=== PATIENT | female | born 1975 | race Caucasian/White ===

== ENCOUNTER 2017-08-31 16:06 | Observation (INO) | payer OTHER ==
--- NOTE | 2017-08-31 16:38 | PDOC ---
History of Present Illness <Estefanía Mccannan - Last Filed: 08/31/17 19:04> - General History Source: Patient - History of Present Illness Initial Comments: 08/31/17 17:50 42yo F with PMH of seizures, schizophrenia, and umbilical hernia presenting to the emergency department because of palpitations. She reports that the palpitations stopped when she came to the hospital because she "felt safe." Patient denies chest pain, shortness of breath, fever, or chills. Of note, history-taking has been difficult because of tangential speech and her story has changed frequently. Patient currently denies suicidal ideation or homicidal ideation. (Patient initially reported suicidal ideation to nurse, but later told resident that she only said so to the nurse because she did not trust her. ) Patient was recently incarcerated and has been homeless since release at the end of June. Psychiatric history includes multiple hospitalizations. <Cassy Mcclure - Last Filed: 08/31/17 19:45> - General Stated Complaint: DIFF. BREATHING Time Seen by Provider: 08/31/17 16:22 Past History <Boni Mccann - Last Filed: 08/31/17 19:04> - Past Medical History Anemia: No Asthma: Yes Cancer: No Cardiac Disorders: No CVA: No COPD: Yes CHF: No Dementia: No Diabetes: Yes (since 2014) GI Disorders: Yes Disorders: No HTN: Yes Hypercholesterolemia: No Kidney Stones: Yes (2014) Liver Disease: No Psychiatric Problems: Yes (BIPOLAR/SCHIZOPHRENIA) Seizures: Yes (last 10/2015) Thyroid Disease: Yes (HYPER) - Surgical History Abdominal Surgery: No Appendectomy: No Cardiac Surgery: No Cholecystectomy: No Lung Surgery: No Neurologic Surgery: Yes (2003 BRAIN TUMOR REMOVED) Orthopedic Surgery: No - Reproductive History PID: No - Suicide/Smoking/Psychosocial Hx Smoking History: Current every day smoker Have you smoked in the past 12 months: Yes Number of Cigarettes Smoked Daily: 20 Cigars Per Day: 0 'Breaking Loose' booklet given: 01/08/16 Hx Alcohol Use: Yes Drug/Substance Use Hx: Yes (PCP since age of 21 daily use, K2 daily use) Substance Use Type: Marijuana (daily use) Hx Substance Use Treatment: Yes (, [facility]) <Cassy Mcclure - Last Filed: 08/31/17 19:45> - Past Medical History Allergies/Adverse Reactions: Allergies Allergy/AdvReac Type Severity Reaction Status Date / Time lithium Allergy Verified 08/31/17 16:37 haloperidol [From Haldol] AdvReac Verified 08/31/17 16:37 haloperidol lactate AdvReac Verified 08/31/17 16:37 [From Haldol] Home Medications: Ambulatory Orders Divalproex Sodium [Depakote ER] 1,500 mg PO HS 01/08/16 Divalproex Sodium [Depakote ER] 500 mg PO DAILY 01/08/16 Paroxetine HCl 20 mg PO DAILY 01/08/16 Quetiapine Fumarate [Seroquel -] 200 mg PO HS 01/08/16 Risperidone [Risperdal] 2 mg PO BID 01/08/16 Venlafaxine HCl [Effexor -] 75 mg PO DAILY 01/08/16 Divalproex [Depakote -] 1,500 mg PO HS #90 tablet.ec 02/04/16 Divalproex [Depakote -] 500 mg PO AM #30 tablet.ec 02/04/16 Docusate Sodium [Colace -] 100 mg PO BID #60 capsule 02/04/16 Fluoxetine HCl [Prozac -] 10 mg PO DAILY #30 capsule 02/04/16 Ranitidine [Zantac -] 150 mg PO BID #60 tablet 02/04/16 Risperidone [Risperdal -] 2 mg PO BID #60 tablet 02/04/16 traZODone HCL [Desyrel -] 50 mg PO HS #30 tablet 02/04/16 Cephalexin [Keflex] 500 mg PO BID #14 capsule 08/31/17 Review of Systems - Review of Systems Constitutional: No: Chills, Fever Respiratory: No: Cough, Shortness of Breath Cardiac (ROS): Yes: Palpitations. No: Chest Pain ABD/GI: No: Diarrhea, Vomiting Psychiatric: Yes: Stressors, Emotional Problems <Cassy Mcclure - Last Filed: 08/31/17 19:45> *Physical Exam - Vital Signs Last Vital Signs Temp Pulse Resp BP Pulse Ox 99.2 F 114 H 24 111/70 96 08/31/17 16:31 08/31/17 16:31 08/31/17 16:31 08/31/17 16:31 08/31/17 16:31 <Ou,Boni - Last Filed: 08/31/17 19:04> - Vital Signs Vital Signs Temp Pulse Resp BP Pulse Ox 99.2 F 114 H 24 111/70 96 08/31/17 16:31 08/31/17 16:31 08/31/17 16:31 08/31/17 16:31 08/31/17 16:31 08/31/17 18:44 Psychiatric: Alert and Oriented x 4, Abnormal affect, tangential speech, Thought process nonlinear - Physical Exam General Appearance: Yes: Disheveled, Obese HEENT: positive: EOMI, FOZIA Neck: positive: Trachea midline, Supple Respiratory/Chest: positive: Normal Breath Sounds Cardiovascular: positive: Regular Rhythm, Regular Rate, S1, S2 Vascular Pulses: Dorsalis-Pedis (R): 2+, Doralis-Pedis (L): 2+ Gastrointestinal/Abdominal: positive: Normal Bowel Sounds, Tender ( periumbilical hernia), Soft Neurologic: positive: superintendent communications II-XII NML intact, Fully Oriented, Alert <Cassy Mcclure - Last Filed: 08/31/17 19:45> ED Treatment Course - LABORATORY CBC & Chemistry Diagram: 08/31/17 18:00 08/31/17 18:00 - ADDITIONAL ORDERS Additional order review: Laboratory Results 08/31/17 08/31/17 08/31/17 18:40 18:00 18:00 Sodium Potassium Chloride Carbon Dioxide Anion Gap BUN Creatinine Creat Clearance w eGFR Random Glucose Calcium Total Bilirubin AST ALT Alkaline Phosphatase Creatine Kinase 456 H Troponin I < 0.02 Total Protein Albumin TSH 0.94 Urine Color Ltyellow Urine Appearance Clear Urine pH 6.0 Ur Specific [place] 1.006 Urine Protein Negative Urine Glucose (UA) Negative Urine Ketones Trace H Urine Blood Negative Urine Nitrite Negative Urine Bilirubin Negative Urine Urobilinogen Negative Ur Leukocyte Esterase Trace Urine WBC (Auto) 10 Urine RBC (Auto) 1 Ur Epithelial Cells Rare Urine HCG, Qual Negative 08/31/17 18:00 Sodium 141 Potassium 3.9 Chloride 106 Carbon Dioxide 23 Anion Gap 12 BUN 9 Creatinine 0.8 Creat Clearance w eGFR > 60 Random Glucose 90 Calcium 8.9 Total Bilirubin 0.4 AST 25 ALT 31 Alkaline Phosphatase 69 Creatine Kinase Troponin I Total Protein 7.2 Albumin 3.4 TSH Urine Color Urine Appearance Urine pH Ur Specific [place] Urine Protein Urine Glucose (UA) Urine Ketones Urine Blood Urine Nitrite Urine Bilirubin Urine Urobilinogen Ur Leukocyte Esterase Urine WBC (Auto) Urine RBC (Auto) Ur Epithelial Cells Urine HCG, Qual 08/31/17 18:00 RBC 4.34 MCV 88.8 MCHC 33.7 RDW 14.2 D MPV 8.9 Neutrophils % 60.8 Lymphocytes % 31.7 Monocytes % 5.5 Eosinophils % 0.8 Basophils % 1.2 - RADIOLOGY Radiology Studies Ordered: Category Date Time Status CHEST PA & LAT [RAD] Stat Radiology 08/31/17 17:36 Ordered - Medications Given in the ED: ED Medications Discontinued Medications Generic Name Dose Route Start Last Admin Trade Name Freq PRN Reason Stop Dose Admin Sodium Chloride 1,000 mls @ 1,000 mls/hr 08/31/17 17:39 08/31/17 18:00 Normal Saline - IV 08/31/17 18:38 1,000 mls/hr ASDIR STA Administration <Boni Mccann - Last Filed: 08/31/17 19:04> - LABORATORY CBC & Chemistry Diagram: 08/31/17 18:00 08/31/17 18:00 <Cassy Mcclure - Last Filed: 08/31/17 19:45> Medical Decision Making - Medical Decision Making Workup for palpitations and tachycardia. Patient with extensive psychiatric history. Currently denying suicidal ideation. EKG normal 08/31/17 17:57 Laboratory Tests 08/31/17 08/31/17 08/31/17 18:00 18:00 18:00 WBC 8.5 RBC 4.34 Hgb 13.0 Hct 38.5 MCV 88.8 MCH 29.9 MCHC 33.7 RDW 14.2 D Plt Count 346 D MPV 8.9 Absolute Neuts (auto) 5.2 Neutrophils % 60.8 Lymphocytes % 31.7 Monocytes % 5.5 Eosinophils % 0.8 Basophils % 1.2 Nucleated RBC % 0 Sodium 141 Potassium 3.9 Chloride 106 Carbon Dioxide 23 Anion Gap 12 BUN 9 Creatinine 0.8 Creat Clearance w eGFR > 60 Random Glucose 90 Calcium 8.9 Total Bilirubin 0.4 AST 25 ALT 31 Alkaline Phosphatase 69 Total Protein 7.2 Albumin 3.4 TSH 0.94 Above labs not concerning. Still waiting on CK, Troponin, and Urinalysis 08/31/17 18:51 Urinalysis indicative of UTI. HR 100. Updated patient who subsequently endorsed suicidal ideation. Psychiatry consult put in. Patient to be admitted for observation until psychiatry can see her. 08/31/17 19:[address] Ngo who recommended patient be admitted for observation until psychiatry can see her. 08/31/17 19:28 Spoke with internal medicine time who will admit patient for observation. 08/31/17 19:44 <Cassy Mcclure - Last Filed: 08/31/17 19:45> *DC/Admit/Observation/Transfer <Boni Mccann - Last Filed: 08/31/17 19:04> - Discharge Dispostion Decision to Admit order: Yes <Cassy Mcclure - Last Filed: 08/31/17 19:45> Diagnosis at time of Disposition: UTI (urinary tract infection) - Discharge Dispostion Condition at time of disposition: Stable - Prescriptions Prescriptions: Cephalexin [Keflex] 500 mg PO BID #14 capsule - Patient Instructions Printed Discharge Instructions: DI for Urinary Tract Infection (UTI) Additional Instructions: You have a urinary tract infection. Take the antibiotics as prescribed to treat it. If you experience any fevers, abdominal pain, flank pain, or any other concerning symptoms, return to the ER immediately. Otherwise, follow up with your primary doctor within 1 week for a re-evaluation.
[2017-08-31 16:40] VITALS: BMI 38.9
[2017-08-31] MEDS ORDERED: SODIUM CHLORIDE 1,000 ML IV STA (17:39)
--- NOTE | 2017-08-31 18:08 | PDOC ---
Attending Attestation - Resident Resident Name: Cassy Mcclure - ED Attending Attestation I have performed the following: I have examined & evaluated the patient, The case was reviewed & discussed with the resident, I agree w/resident's findings & plan, Exceptions are as noted - HPI HPI: 08/31/17 17:58 "The patient is a 42-year-old female, with a past medical history of asthma, HTN , bipolar disorder, schizophrenia, and seizures, who presents to the ED with palpitations that began today. She states that she feels like someone is holding her heart and squeezing it. However, she denies any chest pain or shortness of breath. Pt states that since she has been in the ED, her symptoms have resolved. Currently denies any complaints. In triage, pt initially reported having suicidal ideations but denies it to me, as well as to resident physician. Pt admits to lying about being suicidal because she "did not trust the triage nurse". Pt denies homicidal ideation or auditory/visual hallucinations. The patient denies any fever, chills, nausea, vomiting, diarrhea, or abdominal pain. Denies any chest pain or shortness of breath. Allergies: lithium, haloperidol, haloperidol lactate Surgical History: Brain tumor removal (2003). Social History: Current smoker (a few packs a day); Reports marijuana use. - Physicial Exam PE: 08/31/17 18:01 "GENERAL: Awake, alert, and fully oriented, in no acute distress. HEAD: No signs of trauma EYES: PERRLA, EOMI, sclera anicteric, conjunctiva clear ENT: Auricles normal inspection, hearing grossly normal, nares patent, oropharynx clear without exudates. Moist mucosa NECK: Nontender, no stepoffs, Normal ROM, supple, no lymphadenopathy, JVD, or masses LUNGS: Breath sounds equal, clear to auscultation bilaterally. No wheezes, and no crackles HEART: Regular rate and rhythm, normal S1 and S2, no murmurs, rubs or gallops ABDOMEN: Soft, nontender, normoactive bowel sounds. No guarding, no rebound. No masses EXTREMITIES: Normal range of motion, no edema. No clubbing or cyanosis. No cords, erythema, or tenderness NEUROLOGICAL: Cranial nerves II through XII intact. 5/5 strength and sensation in all extremities, Normal speech, normal gait, normal cerebellar function SKIN: Warm, Dry, normal turgor, no rashes or lesions noted. " - Medical Decision Making 08/31/17 18:01 42 F with palpitations, now resolved. Pt initially tachycardic to 110. EKG showed sinus tachycardia. HR now improved to 80s without intervention. Will r/o ACS with trop. - Labs, trop - IVF - reassess 08/31/17 18:55 Labs notable for UTI. Otherwise unremarkable. Pt reassessed, and now reports that she is feeling suicidal, despite initially denying this claim. Pt with no plans to hurt herself. Will consult psych.
[2017-08-31 18:09] LABS: BASO % 1.2 % (0-2.0); EOS % 0.8 % (0-4.5); HEMATOCRIT 38.5 % (32.4-45.2); LYMPH % 31.7 % (8-40); MCH 29.9 pg (25.7-33.7); MCHC 33.7 g/dl (32.0-36.0); MEAN CELL VOLUME 88.8 fl (80-96); MEAN PLT VOLUME 8.9 fl (7.5-11.1); MONO % 5.5 % (3.8-10.2); NEUT % 60.8 % (42.8-82.8); PLATELET COUNT 346 K/MM3 (134-434); RBC 4.34 M/mm3 (3.60-5.2); RDW 14.2 % (11.6-15.6); WHITE BLOOD COUNT 8.5 K/mm3 (4.0-10.0)
[2017-08-31 18:24] LABS: ALBUMIN 3.4 g/dl (3.4-5.0); ANION GAP 12 (8-16); BILIRUBIN,TOTAL 0.4 mg/dL (0.2-1.0); BLOOD UREA NITROGEN 9 mg/dL (7-18); CALCIUM 8.9 mg/dL (8.5-10.1); CHLORIDE 106 mmol/L (98-107); CO2 23 mmol/L (21-32); CREATININE 0.8 mg/dL (0.55-1.02); GLUCOSE,RANDOM 90 mg/dL (74-106); POTASSIUM 3.9 mmol/L (3.5-5.1); SGOT/AST 25 U/L (15-37); SGPT/ALT 31 U/L (12-78); SODIUM 141 mmol/L (136-145); TOT PROT 7.2 g/dl (6.4-8.2)
[2017-08-31 18:25] LABS: ALK PHOS 69 U/L (45-117)
[2017-08-31 18:54] LABS: URINE APPEARANCE CLEAR; URINE BILIRUBIN NEGATIVE (<2.0 mg/dL); URINE COLOR LTYELLOW; URINE GLUCOSE (UA) NEGATIVE (NEGATIVE); URINE KETONE TRACE (NEGATIVE); URINE LEUK ESTERASE TRACE (NEGATIVE); URINE NITRITE NEGATIVE (NEGATIVE); URINE PROTEIN NEGATIVE (NEGATIVE); URINE UROBILINOGEN NEGATIVE mg/dL (0.2-1.0)
[2017-08-31 18:59] LABS: EPI CELLS RARE /HPF (FEW)
[2017-08-31 19:00] LABS: HCG,QUALITATIVE URINE NEGATIVE
[2017-08-31] MEDS ORDERED: CEPHALEXIN MONOHYDRATE 500 MG CAPSULE (UD) ONE (20:43)
[2017-08-31] MEDS: CEPHALEXIN MONOHYDRATE 500 MG CAPSULE (UD) PO SCH ×2 (20:47→22:06)
--- NOTE | 2017-08-31 21:01 | PN ---
Teaching Attending Note Name of Resident: Cordell Calero ATTENDING PHYSICIAN STATEMENT I saw and evaluated the patient. I reviewed the resident's note and discussed the case with the resident. I agree with the resident's findings and plan as documented. SUBJECTIVE: Patient is a 42 year old woman with history of asthma, HTN, tobacco use, bipolar disorder, schizophrenia, brain tumor removal (2003) and seizure disorder , who presents to the ER with chief complaint of palpitations that began today. She states that she feels like someone is holding her heart and squeezing it. However, she denies any chest pain or shortness of breath. She says that since she has been in the ER her symptoms have resolved. Currently denies any complaints. In triage, patient initially reported having suicidal ideations but denies it to me. She admits to lying about being suicidal because she "did not trust the triage nurse". She has had multiple psychiatric hospitalizations, was recently incarcerated and has been homeless since release at the end of June. She denies homicidal ideation or auditory/visual hallucinations. OBJECTIVE: Somnolent but readily arousable; obese Vital Signs Period Temp Pulse Resp BP Sys/Michael Pulse Ox Last 24 Hr 99.2 F 110-114 22-24 111-111/66-70 96-97 HEENT: No Jaundice, eye redness or discharge, PERRLA, EOMI. Normocephalic, atraumatic. External ears are normal and hearing is grossly intact. No nasal discharge. Neck: Supple, nontender. No palpable adenopathy or thyromegaly. No JVD Chest: Good effort. Clear to auscultation and percussion. Heart: Regular. No S3, rub or murmur Abdomen: Not distended, soft, nontender and no HSM. No rebound or guarding. Normoactive bowel sounds. Ext: Peripheral pulses intact. No leg edema. Skin: Warm and dry. No petechiae, rash or ecchymosis. Neuro: Alert. Oriented x3. CN 2-12 grossly intact. Sensation grossly intact in all four extremities and DTR are symmetric. Psych; Mood is fair, good insight and appropriate affect. Denies homicidal ideation. Current Medications Generic Name Dose Route Start Last Admin Trade Name Freq PRN Reason Stop Dose Admin Cephalexin HCl 500 mg 08/31/17 22:00 08/31/17 22:06 Keflex - PO Not Given BID [facility] Home Medications Medication Instructions Recorded Divalproex Sodium [Depakote ER] 1,500 mg PO HS 01/08/16 Divalproex Sodium [Depakote ER] 500 mg PO DAILY 01/08/16 Paroxetine HCl 20 mg PO DAILY 01/08/16 Quetiapine Fumarate [Seroquel -] 200 mg PO HS 01/08/16 Risperidone [Risperdal] 2 mg PO BID 01/08/16 Venlafaxine HCl [Effexor -] 75 mg PO DAILY 01/08/16 Divalproex [Depakote -] 1,500 mg PO HS #90 tablet.ec 02/04/16 Divalproex [Depakote -] 500 mg PO AM #30 tablet.ec 02/04/16 Docusate Sodium [Colace -] 100 mg PO BID #60 capsule 02/04/16 Fluoxetine HCl [Prozac -] 10 mg PO DAILY #30 capsule 02/04/16 Ranitidine [Zantac -] 150 mg PO BID #60 tablet 02/04/16 Risperidone [Risperdal -] 2 mg PO BID #60 tablet 02/04/16 traZODone HCL [Desyrel -] 50 mg PO HS #30 tablet 02/04/16 Cephalexin [Keflex] 500 mg PO BID #14 capsule 08/31/17 Abnormal Lab Results 08/31/17 08/31/17 18:00 18:40 Creatine Kinase 456 H Urine Ketones Trace H ASSESSMENT AND PLAN: 1. Schizophrenia - Though patient has been vacillating about suicidal ideation, we will place her on one to one monitoring, consult psychiatry and resume her home anti-psychotic drugs. Get urine toxicology. 2. UTI - She had tachycardia on presentation with temp of 99.2 and only 10 WBCs in the urine. Will repeat urinalysis, get urine culture and recheck temperature to rule out UTI. Will withhold antibiotics for now. Her EKG shows no significant abnormalities. Elevated CPK is unexplained. Will encourage liberal oral fluids and give IV NS at 100 ml/hour and repeat CPK in am. 3. Tobacco Use We will provide patient all the necessary assistance to facilitate smoking cessation and prescribe Nicotine patch. 4. DVT prophylaxis - Heparin 5000u sq tid. 5. Advance directives - Full code
--- NOTE | 2017-08-31 23:59 | HP ---
CHIEF COMPLAINT: Palpitations and chest tightness PCP: HISTORY OF PRESENT ILLNESS: 42 y/o female presents with complaint of palpitations and chest tightness that began three days ago after being "aggravated". Describes chest tightness as a squeezing sensation. Denies past occurrence of palpitations. Denies palliative features. Patient is noncooperative, refused to answer many questions, and provided different history to interviewer. Denies: fever, chills, cough, wheezing, SOB, N/V/D, suicidal ideation, homicidal ideations at this time. ER course was notable for: (1) one to one observation, EKG (2) CBC, BMP, CK, Troponin, UA (3) IVNS Recent Travel: PAST MEDICAL HISTORY: Bipolar disorder, schizophrenia, seizures, asthma, DM PAST SURGICAL HISTORY: Brain tumor removal 2003 Social History: Smoking: Admits approx 1 pack per day Alcohol: Admits, unable to quantify Drugs: Admits, unable to quantify Family History: Allergies [place], haloperidol lithium Allergy (Verified 08/31/17 16:37) haloperidol [From Haldol] Adverse Reaction (Verified 08/31/17 16:37) haloperidol lactate [From Haldol] Adverse Reaction (Verified 08/31/17 16:37) HOME MEDICATIONS: Home Medications Medication Instructions Recorded Divalproex Sodium [Depakote ER] 1,500 mg PO HS 01/08/16 Divalproex Sodium [Depakote ER] 500 mg PO DAILY 01/08/16 Paroxetine HCl 20 mg PO DAILY 01/08/16 Quetiapine Fumarate [Seroquel -] 200 mg PO HS 01/08/16 Risperidone [Risperdal] 2 mg PO BID 01/08/16 Venlafaxine HCl [Effexor -] 75 mg PO DAILY 01/08/16 Divalproex [Depakote -] 1,500 mg PO HS #90 tablet.ec 02/04/16 Divalproex [Depakote -] 500 mg PO AM #30 tablet.ec 02/04/16 Docusate Sodium [Colace -] 100 mg PO BID #60 capsule 02/04/16 Fluoxetine HCl [Prozac -] 10 mg PO DAILY #30 capsule 02/04/16 Ranitidine [Zantac -] 150 mg PO BID #60 tablet 02/04/16 Risperidone [Risperdal -] 2 mg PO BID #60 tablet 02/04/16 traZODone HCL [Desyrel -] 50 mg PO HS #30 tablet 02/04/16 Cephalexin [Keflex] 500 mg PO BID #14 capsule 08/31/17 REVIEW OF SYSTEMS CONSTITUTIONAL: Absent: fever, chills, diaphoresis, generalized weakness CARDIOVASCULAR: Admits: palpitations, chest tightness RESPIRATORY: Absent: cough, shortness of breath, wheezing GASTROINTESTINAL: Absent: abdominal pain, abdominal distension, nausea, vomiting, diarrhea NEUROLOGIC: Absent: headache, focal weakness or paresthesias PSYCHIATRIC: Absent: suicidal or homicidal ideation PHYSICAL EXAMINATION Vital Signs - 24 hr 08/31/17 08/31/17 08/31/17 16:31 19:43 19:51 Temperature 99.2 F Pulse Rate 114 H Pulse Rate [ 110 H Left Radial] Respiratory 24 22 Rate Blood Pressure 111/70 Blood Pressure 111/66 [Left Arm] O2 Sat by Pulse 96 97 97 Oximetry (%) GENERAL: Somnolent, uncooperative, oriented to self, person, place, in no acute distress. HEAD: Normal with no signs of trauma. EYES: Pupils equal, round and reactive to light, extraocular movements intact NECK: Normal range of motion, supple without lymphadenopathy, JVD, or masses. LUNGS: Breath sounds equal, clear to auscultation bilaterally. No wheezes. HEART: Regular rate and rhythm, normal S1 and S2. No murmurs. No chest pain reproducible with palpation. ABDOMEN: Soft, nontender, not distended, normoactive bowel sounds, no guarding, no rebound. EXTREMITIES: 2+ pulses, warm. No peripheral edema. PSYCHIATRIC: Noncooperative. Laboratory Results - last 24 hr 08/31/17 08/31/17 08/31/17 18:00 18:00 18:00 WBC 8.5 RBC 4.34 Hgb 13.0 Hct 38.5 MCV 88.8 MCH 29.9 MCHC 33.7 RDW 14.2 D Plt Count 346 D MPV 8.9 Absolute Neuts (auto) 5.2 Neutrophils % 60.8 Lymphocytes % 31.7 Monocytes % 5.5 Eosinophils % 0.8 Basophils % 1.2 Nucleated RBC % 0 Sodium 141 Potassium 3.9 Chloride 106 Carbon Dioxide 23 Anion Gap 12 BUN 9 Creatinine 0.8 Creat Clearance w eGFR > 60 Random Glucose 90 Calcium 8.9 Total Bilirubin 0.4 AST 25 ALT 31 Alkaline Phosphatase 69 Creatine Kinase 456 H Creatine Kinase Index 0.3 CK-MB (CK-2) 1.43 Troponin I < 0.02 Total Protein 7.2 Albumin 3.4 TSH Urine Color Urine Appearance Urine pH Ur Specific [place] Urine Protein Urine Glucose (UA) Urine Ketones Urine Blood Urine Nitrite Urine Bilirubin Urine Urobilinogen Ur Leukocyte Esterase Urine WBC (Auto) Urine RBC (Auto) Ur Epithelial Cells Urine HCG, Qual 08/31/17 08/31/17 18:00 18:40 WBC RBC Hgb Hct MCV MCH MCHC RDW Plt Count MPV Absolute Neuts (auto) Neutrophils % Lymphocytes % Monocytes % Eosinophils % Basophils % Nucleated RBC % Sodium Potassium Chloride Carbon Dioxide Anion Gap BUN Creatinine Creat Clearance w eGFR Random Glucose Calcium Total Bilirubin AST ALT Alkaline Phosphatase Creatine Kinase Creatine Kinase Index CK-MB (CK-2) Troponin I Total Protein Albumin TSH 0.94 Urine Color Ltyellow Urine Appearance Clear Urine pH 6.0 Ur Specific [place] 1.006 Urine Protein Negative Urine Glucose (UA) Negative Urine Ketones Trace H Urine Blood Negative Urine Nitrite Negative Urine Bilirubin Negative Urine Urobilinogen Negative Ur Leukocyte Esterase Trace Urine WBC (Auto) 10 Urine RBC (Auto) 1 Ur Epithelial Cells Rare Urine HCG, Qual Negative ASSESSMENT/PLAN: 42 y/o female with PMH bipolar disorder, schizophrenia, seizures, DM, asthma presents with complaint of palpitations and chest tightness for past three days. Patient is noncooperative, refuses to answer many questions, and presents a different history provided at each interview. #Uncertain suicidal Ideation -One to one observation -Psychiatrist consult #Palpitations -ECG done in ED showed sinus tachycardia -Troponins negative at 0.02 -CXR showed blunting of right costophrenic angle -urine toxicology #UTI -WBC, trace leukocyte esterase and ketones in UA -Elevated CPK -Repeat UA -Follow urine cultures #Cigarette use -Nicotine patch #FEN IV NS 100ml/hr No electrolyte abnormalities Diabetic diet #Prophylaxis Heparin 5000units subq TID Disposition- place in observation Case discussed with on-call attending Cordell Calero DO PGY-1 Visit type - Emergency Visit Emergency Visit: Yes ED Registration Date: 08/31/17 Care time: The patient presented to the Emergency Department on the above date and was hospitalized for further evaluation of their emergent condition. - New Patient This patient is new to me today: Yes Date on this admission: 09/01/17 - Critical Care Critical Care patient: No Hospitalist Screening - Colonoscopy Questionnaire Colonoscopy Questionnaire: Colonoscopy Questionnaire - Patient: 50 - 75 years old and never had a screening colonoscopy: Unknown History of colon or rectal polyps, or CA: Unknown History of IBD, Crohn's disease or UC: Unknown History of abdominal radiation therapy as a child: Unknown - Relative: 1 with colon or rectal CA, or polyps at age 60 or younger: Unknown Colon or rectal CA diagnosed at age 45 or younger: Unknown Multiple relatives with colon or rectal CA: Unknown - Outcome: Screening Result: Negative Screen
[2017-09-01] MEDS ORDERED: SODIUM CHLORIDE 1,000 ML IV SCH (02:45)
[2017-09-01] MEDS ORDERED: HEPARIN NA (PORCINE) 5,000 UNITS/ML 1ML VIAL SQ SCH (06:00)
[2017-09-01] MEDS ORDERED: HEPARIN NA (PORCINE) 5,000 UNITS/ML 1ML VIAL ONE (06:05)
[2017-09-01] MEDS: CEPHALEXIN MONOHYDRATE 500 MG CAPSULE (UD) PO SCH (09:45)
[2017-09-01] MEDS ORDERED: NICOTINE 7 MG/24 HOURS TOPICAL PATCH TD SCH (10:00)
--- NOTE | 2017-09-01 10:05 | CON.PSY ---
Psychiatry Consult Chief Complaint: I dont want to kill myself now, I go to [facility] team. Ge5t my Haldol , cogentin and lithium there. Patient with a long history of Schizophrenia. - Previous Psychiatric Treatment Outpatient: Less than 6 mos ago Inpatient: 2 or more prior admissions - Previous Substance Abuse Treatment Outpatient: None Inpatient: None - Reason for Previous Treatment Reason for Previous Treatment: Psychotic Episode - Current Medications Current Medications: Active Medications Cephalexin HCl (Keflex -) 500 mg PO BID ON LICENSE OF [facility] Last Admin: 09/01/17 09:45 Dose: 500 mg Heparin Sodium (Porcine) (Heparin -) 5,000 unit SQ TID ON LICENSE OF [facility] Last Admin: 09/01/17 06:10 Dose: 5,000 unit Sodium Chloride (Normal Saline -) 1,000 mls @ 100 mls/hr IV ASDIR ON LICENSE OF [facility] Last Admin: 09/01/17 03:33 Dose: 100 mls/hr Nicotine (Nicoderm Patch -) 7 mg TD DAILY ON LICENSE OF [facility] Last Admin: 09/01/17 09:44 Dose: 7 mg - Allergies Allergies: Allergies Allergy/AdvReac Type Severity Reaction Status Date / Time lithium Allergy Verified 08/31/17 16:37 haloperidol [From Haldol] AdvReac Verified 08/31/17 16:37 haloperidol lactate AdvReac Verified 08/31/17 16:37 [From Haldol] - Current Living Status Usual Living Arrangement: Alone - Current Mental Status Evaluation Appearance: Disheveled Attitude: Cooperative - Affect Affect: Constrictive Appropriateness: Appropriate to Content - Mood Mood: Euthymic - Speech/Language Expressive: Coherent - Psychomotor Activity Psychomotor Activity: Normal - Thought Process Thought Process: Circumstantial - Thought Content Hallucinations: Absent - Self Perception Self Perception: No Impairment - Cognition Attention: Alert Orientation: Time Memory, Immediate Recall: Intact Memory, Short Term: 2/3 Memory, Remote with Promptin/3 - Concentration Serial Sevens Intact: No Simple Calculations Intact: No - Abstraction Proverb Interpretation: Impaired Judgement: Minimally Impaired - Insight Insight: Intact - Impulse Control Impulse Control: Minimally Impaired - Suicidal Ideation Suicidal Ideation: No - Homicidal Ideation Homicidal Ideation: No Assessment/Plan 1) haldol 5mg po od and cogentin 2mg po od. 2 follow up at [facility] team. 3) Patient is not suicidal at this time.
--- NOTE | 2017-09-01 11:29 | EKG ---
Test Reason : Blood Pressure : / mmHG Vent. Rate : 109 BPM Atrial Rate : 109 BPM P-R Int : 128 ms QRS Dur : 084 ms QT Int : 358 ms P-R-T Axes : 069 048 034 degrees QTc Int : 482 ms SINUS TACHYCARDIA OTHERWISE NORMAL ECG NO PREVIOUS ECGS AVAILABLE Confirmed by CARLIN KIMBLE MD ([id number]) on 09/01/2017 11:29:09 AM Referred By: Confirmed By:CARLIN KIMBLE MD
[2017-09-01 13:21] VITALS: BP 103/56; PULSE 76; TEMP 98.1
--- NOTE | 2017-09-01 15:50 | PN ---
Teaching Attending Note Name of Resident: Venus Robles ATTENDING PHYSICIAN STATEMENT I saw and evaluated the patient. I reviewed the resident's note and discussed the case with the resident. I agree with the resident's findings and plan as documented. SUBJECTIVE: OBJECTIVE: Vital Signs Temperature 98.1 F 09/01/17 12:40 Pulse Rate 76 09/01/17 12:40 Respiratory Rate 16 09/01/17 12:40 Blood Pressure 103/56 09/01/17 12:40 O2 Sat by Pulse Oximetry (%) 96 09/01/17 12:40 CBCD WBC 8.5 K/mm3 (4.0-10.0) 08/31/17 18:00 RBC 4.34 M/mm3 (3.60-5.2) 08/31/17 18:00 Hgb 13.0 GM/dL (10.7-15.3) 08/31/17 18:00 Hct 38.5 % (32.4-45.2) 08/31/17 18:00 MCV 88.8 fl (80-96) 08/31/17 18:00 MCHC 33.7 g/dl (32.0-36.0) 08/31/17 18:00 RDW 14.2 % (11.6-15.6) D 08/31/17 18:00 Plt Count 346 K/MM3 (134-434) D 08/31/17 18:00 MPV 8.9 fl (7.5-11.1) 08/31/17 18:00 CMP Sodium 141 mmol/L (136-145) 08/31/17 18:00 Potassium 3.9 mmol/L (3.5-5.1) 08/31/17 18:00 Chloride 106 mmol/L (98-107) 08/31/17 18:00 Carbon Dioxide 23 mmol/L (21-32) 08/31/17 18:00 Anion Gap 12 (8-16) 08/31/17 18:00 BUN 9 mg/dL (7-18) 08/31/17 18:00 Creatinine 0.8 mg/dL (0.55-1.02) 08/31/17 18:00 Creat Clearance w eGFR > 60 (>60) 08/31/17 18:00 Random Glucose 90 mg/dL (74-106) 08/31/17 18:00 Calcium 8.9 mg/dL (8.5-10.1) 08/31/17 18:00 Total Bilirubin 0.4 mg/dL (0.2-1.0) 08/31/17 18:00 AST 25 U/L (15-37) 08/31/17 18:00 ALT 31 U/L (12-78) 08/31/17 18:00 Alkaline Phosphatase 69 U/L (45-117) 08/31/17 18:00 Total Protein 7.2 g/dl (6.4-8.2) 08/31/17 18:00 Albumin 3.4 g/dl (3.4-5.0) 08/31/17 18:00 CARDIAC ENZYMES Creatine Kinase 456 IU/L (26-192) H 08/31/17 18:00 Troponin I < 0.02 ng/ml (0.00-0.05) 08/31/17 18:00 Home Medications Medication Instructions Recorded Divalproex Sodium [Depakote ER] 1,500 mg PO HS 01/08/16 Divalproex Sodium [Depakote ER] 500 mg PO DAILY 01/08/16 Paroxetine HCl 20 mg PO DAILY 01/08/16 Quetiapine Fumarate [Seroquel -] 200 mg PO HS 01/08/16 Risperidone [Risperdal] 2 mg PO BID 01/08/16 Venlafaxine HCl [Effexor -] 75 mg PO DAILY 01/08/16 Divalproex [Depakote -] 1,500 mg PO HS #90 tablet.ec 02/04/16 Divalproex [Depakote -] 500 mg PO AM #30 tablet.ec 02/04/16 Docusate Sodium [Colace -] 100 mg PO BID #60 capsule 02/04/16 Fluoxetine HCl [Prozac -] 10 mg PO DAILY #30 capsule 02/04/16 Ranitidine [Zantac -] 150 mg PO BID #60 tablet 02/04/16 Risperidone [Risperdal -] 2 mg PO BID #60 tablet 02/04/16 traZODone HCL [Desyrel -] 50 mg PO HS #30 tablet 02/04/16 ASSESSMENT AND PLAN: Patient is feeling better , with no acute distress. Patient was seen by Psychiatrist . Patient was cleared for a the discharge by the [facility]. as per psych. patient will continue with her Cogentin and Haldol. Patient goes to [facility] ; [facility] team. Patient is going to the clinic after the discharge.
--- NOTE | 2017-09-01 17:09 | DS ---
Physical Exam: SUBJECTIVE: Patient seen and examined OBJECTIVE: Patient was admitted for suicidal ideation. Vital Signs Period Temp Pulse Resp BP Sys/Michael Pulse Ox Last 24 Hr 97.8 F-98.3 F 76-110 16-22 99-111/46-66 96-98 PHYSICAL EXAM GENERAL: The patient is awake, alert, and fully oriented, in no acute distress. HEENT: AT/NC. EOMI. NECK: Supple, No JVD, No LAD. LUNGS: CTA B/L. No wheezes, rhonchi, rales appreciated. HEART: RRR. Normal S1, S2. No murmurs, rubs, or gallop appreciated. ABDOMEN: Soft, nontender, nondistended, normoactive bowel sounds, no masses. EXTREMITIES: 2+ pulses, warm, well-perfused, no edema. NEUROLOGICAL: CN II-XII intact. PSYCH: Disorganized thoughts. LABS Laboratory Results - last 24 hr 08/31/17 08/31/17 08/31/17 18:00 18:00 18:00 WBC 8.5 RBC 4.34 Hgb 13.0 Hct 38.5 MCV 88.8 MCH 29.9 MCHC 33.7 RDW 14.2 D Plt Count 346 D MPV 8.9 Absolute Neuts (auto) 5.2 Neutrophils % 60.8 Lymphocytes % 31.7 Monocytes % 5.5 Eosinophils % 0.8 Basophils % 1.2 Nucleated RBC % 0 Sodium 141 Potassium 3.9 Chloride 106 Carbon Dioxide 23 Anion Gap 12 BUN 9 Creatinine 0.8 Creat Clearance w eGFR > 60 Random Glucose 90 Calcium 8.9 Total Bilirubin 0.4 AST 25 ALT 31 Alkaline Phosphatase 69 Creatine Kinase 456 H Creatine Kinase Index 0.3 CK-MB (CK-2) 1.43 Troponin I < 0.02 Total Protein 7.2 Albumin 3.4 TSH Urine Color Urine Appearance Urine pH Ur Specific [place] Urine Protein Urine Glucose (UA) Urine Ketones Urine Blood Urine Nitrite Urine Bilirubin Urine Urobilinogen Ur Leukocyte Esterase Urine WBC (Auto) Urine RBC (Auto) Ur Epithelial Cells Urine HCG, Qual 08/31/17 08/31/17 18:00 18:40 WBC RBC Hgb Hct MCV MCH MCHC RDW Plt Count MPV Absolute Neuts (auto) Neutrophils % Lymphocytes % Monocytes % Eosinophils % Basophils % Nucleated RBC % Sodium Potassium Chloride Carbon Dioxide Anion Gap BUN Creatinine Creat Clearance w eGFR Random Glucose Calcium Total Bilirubin AST ALT Alkaline Phosphatase Creatine Kinase Creatine Kinase Index CK-MB (CK-2) Troponin I Total Protein Albumin TSH 0.94 Urine Color Ltyellow Urine Appearance Clear Urine pH 6.0 Ur Specific [place] 1.006 Urine Protein Negative Urine Glucose (UA) Negative Urine Ketones Trace H Urine Blood Negative Urine Nitrite Negative Urine Bilirubin Negative Urine Urobilinogen Negative Ur Leukocyte Esterase Trace Urine WBC (Auto) 10 Urine RBC (Auto) 1 Ur Epithelial Cells Rare Urine HCG, Qual Negative HOSPITAL COURSE: Patient was admitted for suicidal ideation. She was observed overnight, evaluated by psychiatrist and deemed not actively suicidal. She was cleared for discharge today. Date of Admission:08/31/17 Date of Discharge: 09/01/17 Minutes to complete discharge: 35 Discharge Summary Reason For Visit: SUICIDAL IDEATION Condition: Stable - Instructions Diet, Activity, Other Instructions: Follow with with [facility] today with the [facility] for further care and Prescriptions. Disposition: HOME - Home Medications Comprehensive Discharge Medication List: Ambulatory Orders Divalproex Sodium [Depakote ER] 1,500 mg PO HS 01/08/16 Divalproex Sodium [Depakote ER] 500 mg PO DAILY 01/08/16 Paroxetine HCl 20 mg PO DAILY 01/08/16 Quetiapine Fumarate [Seroquel -] 200 mg PO HS 01/08/16 Risperidone [Risperdal] 2 mg PO BID 01/08/16 Venlafaxine HCl [Effexor -] 75 mg PO DAILY 01/08/16 Divalproex [Depakote -] 1,500 mg PO HS #90 tablet.ec 02/04/16 Divalproex [Depakote -] 500 mg PO AM #30 tablet.ec 02/04/16 Docusate Sodium [Colace -] 100 mg PO BID #60 capsule 02/04/16 Fluoxetine HCl [Prozac -] 10 mg PO DAILY #30 capsule 02/04/16 Ranitidine [Zantac -] 150 mg PO BID #60 tablet 02/04/16 Risperidone [Risperdal -] 2 mg PO BID #60 tablet 02/04/16 traZODone HCL [Desyrel -] 50 mg PO HS #30 tablet 02/04/16 This patient is new to me today: Yes Date on this admission: 09/01/17 Emergency Visit: No Critical Care patient: No - Discharge Referral Referred to [facility] No
== END 2017-09-01 12:40 | disposition home or self-care (01) ==
LOC: JER 16:06 → JERBED 19:37
PROVIDERS: ADMIT Internal Medicine; ATTEND Internal Medicine
PROC: 3E0337Z Introduction of Electrolytic and Water Balance Substance into Peripheral Vein, Percutaneous Approach (ICD-10-PCS; principal; 2017-08-31)
PROC: 3E013GC Introduction of Other Therapeutic Substance into Subcutaneous Tissue, Percutaneous Approach (ICD-10-PCS; 2017-08-31)
DX: N39.0 Urinary tract infection, site not specified (principal); R45.851 Suicidal ideations; I10 Essential (primary) hypertension; G40.909 Epilepsy, unspecified, not intractable, without status epilepticus; F20.9 Schizophrenia, unspecified; F31.9 Bipolar disorder, unspecified; F17.210 Nicotine dependence, cigarettes, uncomplicated; J45.909 Unspecified asthma, uncomplicated; E11.9 Type 2 diabetes mellitus without complications; F16.20 Hallucinogen dependence, uncomplicated; F12.20 Cannabis dependence, uncomplicated; Z87.442 Personal history of urinary calculi; Z59.0 Homelessness; Z85.841 Personal history of malignant neoplasm of brain
CPT/HCPCS: 36415; 71045-TC-FY; 80053; 81003; 81015; 82550; 82553; 84443; 84484; 84703; 85025; 87086; 93005; 93010; 96360; 96372; 99285-25; G0378; J1644; J7030

== ENCOUNTER 2023-12-21 20:31 | Emergency (ER) | payer OTHER ==
[2023-12-21 20:38] VITALS: BP 110/76; PULSE 96; RESP 20; TEMP 98.3; BMI 45.3
[2023-12-21] MEDS ORDERED: ACETAMINOPHEN 325 MG TABLET (FP) ONE (21:27)
[2023-12-21] MEDS ORDERED: LIDOCAINE 4% PATCH TP ONE (21:27)
[2023-12-21] MEDS: ACETAMINOPHEN 500 MG TABLET (FP) PO ONE (21:35)
[2023-12-21] MEDS: LIDOCAINE 5% TOPICAL PATCH TP ONE (21:35)
[2023-12-21] MEDS: LIDOCAINE PATCH REMOVAL MC SCH (21:36)
== END 2023-12-21 22:49 | disposition home or self-care (01) ==
LOC: JER 20:31
DX: M54.9 Dorsalgia, unspecified (principal); W01.0XXA Fall on same level from slipping, tripping and stumbling without subsequent striking against object, initial encounter; Y93.01 Activity, walking, marching and hiking
CPT/HCPCS: 99283-25

== ENCOUNTER 2023-12-23 03:53 | Emergency (ER) | payer OTHER ==
[2023-12-23 04:01] VITALS: BP 143/84; PULSE 91; RESP 18; TEMP 98.5; BMI 41.5
== END 2023-12-23 04:25 | disposition home or self-care (01) ==
LOC: JER 03:53
DX: M54.9 Dorsalgia, unspecified (principal); Z76.5 Malingerer [conscious simulation]
CPT/HCPCS: 99283-25

== ENCOUNTER 2024-01-01 13:40 | Emergency (ER) | payer OTHER ==
[2024-01-01 13:50] VITALS: RESP 18; TEMP 98.5; BMI 24.0
[2024-01-01] MEDS: LIDOCAINE 4% PATCH TP ONE (15:15)
[2024-01-01 15:31] LABS: BASO % 1.2 % (0-2.0); EOS % 2.4 % (0-4.5); HEMATOCRIT 41.8 % (32.4-45.2); HEMOGLOBIN 13.8 GM/dL (10.7-15.3); MCH 29.6 pg (25.7-33.7); MCHC 32.9 g/dl (32.0-36.0); MEAN CELL VOLUME 89.9 fl (80-96); MEAN PLT VOLUME 8.1 fl (7.5-11.1); MONO % 7.4 % (3.8-10.2); PLATELET COUNT 405 10^3/uL (134-434); RBC 4.65 M/mm3 (3.60-5.2); RDW 14.2 % (11.6-15.6); WHITE BLOOD COUNT 8.4 K/mm3 (4.0-10.0)
[2024-01-01] MEDS: SODIUM CHLORIDE 0.9% 500 ML INFUS.BAG IV ONE (15:42)
[2024-01-01] MEDS: ACETAMINOPHEN 1000 MG/100 ML BAG IVPB ONE (15:42)
[2024-01-01 15:43] LABS: INR 1.04 (0.83-1.09); PROTHROMBIN TIME (PATIENT) 11.7 SEC (9.7-13.0)
[2024-01-01 15:53] LABS: POTASSIUM 3.8 mmol/L (3.5-5.1)
[2024-01-01 15:55] LABS: CALCIUM 9.3 mg/dL (8.5-10.1)
[2024-01-01 15:56] LABS: ALBUMIN 3.4 g/dl (3.4-5.0)
[2024-01-01 16:00] LABS: BILIRUBIN,TOTAL 0.4 mg/dL (0.2-1); TOT PROT 6.8 g/dl (6.4-8.2)
[2024-01-01 19:59] VITALS: BP 112/54; PULSE 72
[2024-01-01] MEDS ORDERED: LIDOCAINE PATCH REMOVAL MC SCH (22:00)
== END 2024-01-01 20:42 | disposition home or self-care (01) ==
LOC: JER 13:40
PROC: 3E033NZ Introduction of Analgesics, Hypnotics, Sedatives into Peripheral Vein, Percutaneous Approach (ICD-10-PCS; principal; 2024-01-01)
DX: M54.9 Dorsalgia, unspecified (principal); R11.10 Vomiting, unspecified; R10.11 Right upper quadrant pain; R07.9 Chest pain, unspecified; R06.02 Shortness of breath; R00.2 Palpitations; R51.9 Headache, unspecified; M25.561 Pain in right knee; M25.562 Pain in left knee; G89.29 Other chronic pain
CPT/HCPCS: 36415; 70450-TC; 71045-TC-FY; 72125-TC; 74177-TC; 80053; 83690; 84484; 84703; 85025; 85610; 85730; 93005; 93010; 99285-25; J0131; Q9967

== ENCOUNTER 2024-01-02 09:13 | Emergency (ER) | payer OTHER ==
[2024-01-02 09:37] VITALS: BP 105/69; PULSE 99; RESP 18; TEMP 98.1; BMI 36.0
== END 2024-01-02 12:40 | disposition home or self-care (01) ==
LOC: JER 09:13
DX: F10.20 Alcohol dependence, uncomplicated (principal)
CPT/HCPCS: 99283-25